=== PATIENT | male | born 1960 | race Caucasian/White ===

== ENCOUNTER 2018-05-13 07:59 | Outpatient (CLI) | payer OTHER, SELFPAY ==
--- NOTE | 2018-05-13 08:27 | DI.RAD_ITS ---
SYMPTOMS/DIAGNOSIS: PAIN LT FOOT, M79.672, ? LT HEEL SPURRING LEFT FOOT: Three views. The bones are normally mineralized. No suspicious lytic or sclerotic lesions, fracture or dislocation is seen. There is a moderate size spur at the plantar surface of the calcaneus. There is an enthesophyte seen at the posterior calcaneus at the insertion site of the Achilles. No radiopaque foreign bodies are seen in the soft tissues. The joint spaces are well maintained. IMPRESSION: Moderate size calcaneal spur.
== END 2018-05-13 08:19 ==
PROVIDERS: PCP Family Medicine; Visit Provider Physician Assistant Medical
DX: M79.672 Pain in left foot (principal); M77.32 Calcaneal spur, left foot
CPT/HCPCS: 73630

== ENCOUNTER 2020-08-25 02:30 | Outpatient (CLI) | payer OTHER, SELFPAY ==
[2020-08-26 13:18] LABS: COVID-19 RT-PCR UVMMC Result Negative (Negative)
== END 2020-08-25 02:31 | disposition home or self-care (01) ==
LOC: LBO 02:30
PROVIDERS: PCP Family Medicine; Visit Provider Surgery
DX: Z20.822 Contact with and (suspected) exposure to COVID-19 (principal); Z01.818 Encounter for other preprocedural examination
CPT/HCPCS: U0003

== ENCOUNTER 2020-08-29 10:22 | Day surgery (SDC) | payer OTHER, SELFPAY ==
--- NOTE | 2020-08-29 07:03 | W.COLOREPORT ---
Date of service: 08/29/20 Time of Service: 12:29 Colonoscopy Report Date of procedure: 08/29/20 Pre-op diagnosis general: Colon Cancer Screening, hx of polyps Post-op diagnosis procedure note: same (polyps) Procedure: Colonoscopy with polypectomy Surgeon: Elizabeth Dangelo Anesthesia proc note operative: other (General/ASA 2/Sandra Silveira CRNA) Estimated blood loss (mL): 3 Pathology: other (Transverse, descending and sigmoid polyp) Complications: None Disposition: same day Indications: The patient is here for Colonoscopy pre-op. His last screening was 5 years ago, in [place]. He has no family history of colon cancer. He has not had any bowel habit changes. -Discussed colonoscopy bowel prep as well as the procedure. Discussed possible complications of the procedure to include bleeding, pain, perforation, missed small lesion/polyp, sore throat, aspiration and adverse reaction to the medications. Questions were answered to patient?s satisfaction. No guarantees were implied or given. I spent 28 minutes in reviewing the record, seeing the patient, providing patient education, answering patient's questions and documenting in the medical record. P// Colonoscopy under sedation Prep: Miralax/Dulcolax Procedure Start Time: 12:29 Procedure End Time: 12:55 Retraction Time: 18 minutes Findings: 3 polyps Procedure Description: After informed consent was obtained the patient was taken to the procedure room and placed in a left decubitous position. Monitors were applied and a time out was done. The patients name, date of , procedure, allergies to medications and metal in their body was reviewed. The patient was then sedated. Once sedated and comfortable a rectal exam was done. External exam was normal. Internal exam revealed a normal sphincter tone and no palpable masses. The prostate felt smooth. The scope was then introduced and retro-flexed. No internal hemorrhoids, polyps or masses were identified on retro-flexion. The scope was then advanced to the cecum without difficulty. The ileocecal vlave and appendiceal orifice were identified. The prep was adequate. The scope was then slowly retracted over 18 minutes back into the rectum. Polyps were removed with cold forceps in the Transverse colon, descending colon and sigmoid colon. There was no diverticulosis noted. The scope was removed and the patient was woken up and taken back to Same day surgery in stable condition. The patient tolerated the procedure well and there were no immediate complications. Follow up: The patient should follow up in 3-5 years unless they develop changes in bowel habits or other new gastrointestinal complaints.
--- NOTE | 2020-08-29 07:04 | W.PM.DSUDISC ---
Discharge Plan Disposition Patient Disposition: HOME Condition: Good Discharge Details Reason For Visit: Colon Cancer Screening Attending Provider: Elizabeth Dangelo Primary Care Provider: Melba Carreon Home Meds and New Rx's Prescriptions: Continued cholecalciferol (vitamin D3) 250 mcg (10,000 unit) capsule 250 mcg PO DAILY RF: 0 aspirin 81 mg tablet,delayed release (DR/EC) 81 mg PO DAILY RF: 0 omega-3 fatty acids [Fish Oil Concentrate] 1,000 mg capsule 3,000 mg PO DAILY RF: 0 diclofenac sodium [Arthritis Pain (diclofenac)] 1 % gel 4 g topical QID PRNRF: 0 losartan-hydrochlorothiazide 100-12.5 mg tablet 1 tab PO DAILY RF: 0 Discontinued polyethylene glycol 3350 17 gram/dose powder 238 g PO ONCE Qty: 238 RF: 0 bisacodyl [Dulcolax (bisacodyl)] 5 mg tablet,delayed release (DR/EC) 5 mg PO ONCE Qty: 4 RF: 0 Discharge Instructions Instructions: Diverticulosis (DC), Colorectal Polyps (DC) Additional Instructions: Findings: 3 polyps Diverticulosis Follow up: 3-5 Please call if you develop: fevers >101.5 Nausea or Vomiting Abdominal pain that is not transient DAY SURGERY UNIT POST ENDOSCOPY INSTRUCTIONS 1. Because there will be medication in your system for the next 24 hours, you may feel a little sleepy. Your coordination will be affected. Therefore: a. Do not drive or operate dangerous equipment for 24 hours. b. Do not drink alcohol beverages for 24 hours (not even beer). c. Plan to go home and rest for the day. 2. Generally there are no restrictions on your activity after a day or so has gone by, but you may feel a bit fatigued for a few days. 3 After you arrive home you may have a light meal and return to a normal diet as you can tolerate it without feeling sick to your stomach. 4. After surgery, you may feel pain or discomfort. This should be only transient, but if it persists please contact your doctor. 5. If there are any questions regarding the findings of your procedure, please feel free to contact your doctor. 6. If you are unable to contact your doctor with a problem, contact the hospital at [phone]. 7. Continue all your regular medications unless directed otherwise. I understand the above instructions and have no questions. Signature of Patient or Responsible Adult Escort Date/Time Name of Responsible Adult Escort Signature of Nurse Date/Time Activity:: Activity as Tolerated Diet:: High Fiber diet Discharge Orders Discharge Orders: Discharge Order (Routine); Ordered 08/29/20 Ordered By: Elizabeth Dangelo
[2020-08-29 10:30] VITALS: BP 125/81; PULSE 61; RESP 16; TEMP 37; O2SAT 94
[2020-08-29] MEDS: Lactated Ringers 1,000 ML 80 ML IV (11:05)
--- NOTE | 2020-08-29 12:35 | BOWEL_PTH ---
PATIENT: Paul Hoffmann LOC: [facility] U#:[id number] AGE/SX: 59/M ROOM: RE08/29/[address]: Elizabeth Dangelo MD : 1960 BED: DIS: 08/29/2020 SPEC #: [id number] RECD: 08/29/20 17:28 STATUS: EDMOND REVenkat #: [id number] JOSE: 08/29/20 12:[address]: Elizabeth Dangelo DEPT: Surgical Specimen RECD BY: Sanjana Padilla ENTERED: 08/29/20 17:34 SP TYPE: Bowel OTHR DR: Melba Carreon Tissues: 1 - BIOPSY BOWEL 2 - BIOPSY BOWEL 3 - BIOPSY BOWEL Procedures: GROSS AND MICRO LEVEL 4 Comments: [id number]
[2020-08-29 13:25] VITALS: BP 135/93; PULSE 68; RESP 16; TEMP 36.7; O2SAT 97
== END 2020-08-29 13:55 | disposition home or self-care (01) ==
LOC: SUR 10:22
PROVIDERS: PCP Family Medicine; Visit Provider Surgery
PROC: 0DJD8ZZ Inspection of Lower Intestinal Tract, Via Natural or Artificial Opening Endoscopic (ICD-10-PCS; CPT 45378; principal; 2020-08-29 11:00)
DX: Z12.11 Encounter for screening for malignant neoplasm of colon (principal); Z86.010 Personal history of colon polyps; D12.3 Benign neoplasm of transverse colon; D12.4 Benign neoplasm of descending colon
CPT/HCPCS: 45380; 88305; J2001

== ENCOUNTER 2020-11-28 10:26 | Outpatient (REF) | payer BC, SELFPAY ==
[2020-11-28 14:20] LABS: Vitamin D 25 Total 42.8 ng/mL (30-100)
== END 2020-11-28 10:27 | disposition home or self-care (01) ==
LOC: NCHCN 10:26
PROVIDERS: PCP Family Medicine; Visit Provider Family Medicine
DX: E55.9 Vitamin D deficiency, unspecified (principal)
CPT/HCPCS: 82306

== ENCOUNTER 2021-02-25 10:07 | Emergency (ER) | payer OTHER, BC, SELFPAY ==
[2021-02-25] VITALS (45 sets, daily range): BP systolic 93–128; BP diastolic 54–86; PULSE 78–160; RESP 13–33; TEMP 36.3; O2SAT 81–100
--- NOTE | 2021-02-25 10:00 | RT.EKG_ITS ---
APPROVED REPORT Exam: Resting ECG Reason for Exam: chest pain Patient Location: E HR:145 bpm ECG Measurements Heart Rate 145 AXIS VT [id number] P [id number] QRSd 79 QRS 27 QT 295 T [id number] QTc 459 Conclusion Atrial fibrillation...V-rate 101-183, irreg A-activity. Afib. No STEMI. I have reviewed and interpreted ECG and agree with software generated interpretation.
--- NOTE | 2021-02-25 10:12 | ED.GENADUL_ITS ---
Discharge Plan Disposition Patient Disposition: HOME Condition: Stable Discharge Details Clinical Impression: Atrial fibrillation, transient, Pericardial effusion, Chest pain, Back pain, Dizziness Primary Care Provider: Melba Carreon ED Provider: Amparo Siu Home Meds and New Rx's Prescriptions: New metoprolol succinate 25 mg tablet extended release 24 hr 25 mg PO DAILY Qty: 30 RF: 0 Continued cholecalciferol (vitamin D3) 250 mcg (10,000 unit) capsule 250 mcg PO DAILY RF: 0 aspirin 81 mg tablet,delayed release (DR/EC) 81 mg PO DAILY RF: 0 omega-3 fatty acids [Fish Oil Concentrate] 1,000 mg capsule 3,000 mg PO DAILY RF: 0 diclofenac sodium [Arthritis Pain (diclofenac)] 1 % gel 4 g topical QID PRNRF: 0 losartan-hydrochlorothiazide 100-12.5 mg tablet 1 tab PO DAILY RF: 0 Discharge Instructions Instructions: A-fib (Atrial Fibrillation) (ED), Chest Pain (ED), Dizziness (ED), Back Pain (ED) Additional Instructions: Your blood work today is reassuring. Your initial EKG showed evidence of atrial fibrillation. Your heart rhythm appears to have converted back to normal sinus rhythm. [facility] cardiology is recommending to start you on a beta-katrin medication called metoprolol for the atrial fibrillation seen on your initial EKG today to prevent any additional episodes of atrial fibrillation. A prescription for this medication has been sent electronically to your pharmacy. [facility] cardiology is not recommending anticoagulation at this time but this can be further discussed with cardiology or your primary care doctor on follow-up. Call Dr. Carreon's office on Saturday to confirm scheduling of your outpatient stress test which should be done as soon as possible. An order for an outpatient echocardiogram was also placed today. You can call the radiology department to schedule this test. Confirm with your primary care doctor and/or insurance company whether this should be obtained here at [facility]. Follow-up with your primary care doctor and cardiology for reevaluation. Return immediately to the emergency department if you develop any worsening or new concerning symptoms such as persistent dizziness, worsening chest pain or back pain, difficulty breathing or any other concern. Referrals: Alethea Omer MD [ [facility] STAFF PHYSICIAN] - Discharge Data Discharge Date/Time-TO BE ENTERED AT DEPARTURE: 02/25/21 14:24 Discharge Physician: Amparo Siu Medical Decision Making 60-year-old male with a history of hypertension and prediabetes presents for 2 episodes of chest pain with intermittent episodes of right-sided back pain and dizziness for the last 2-week, with worsening lightheadedness this morning. EKG on arrival notes a rate of 145 and atrial fibrillation. No available old EKG to compare. Patient denies any known history of atrial fibrillation. He states his last alcoholic beverage was 1 week ago. His blood pressure on arrival 124/64, then decreased to 99/64. Recheck 118/86. We will give a dose of 10 mg Cardizem IV x1 for new onset atrial fibrillation. Unclear how long patient has been in atrial fibrillation. Will obtain screening labs and CT chest to rule out PE. Will give fluids to help maintain BP. Just prior to patient to be given Cardizem, he converted to sinus rhythm. Repeat EKG notes a rate of 81, sinus, no STEMI. Labs reviewed and unremarkable. Troponin negative. CT chest notes a mild to moderate pericardial effusion. Case discussed with [facility] cardiology reviewed EKGs -- his [id number] score is 1 and does not recommend anticoagulation. Recommends metoprolol 25 mg if patient remains hypotensive, or 50 mg once daily. Recommend outpatient stress test as there is a questionable atypical/positional/exertional component. Also recommends echocardiogram sooner than later secondary to pericardial effusion and also consider additional outpatient cancer screening. Repeat troponin negative. Repeat EKG unchanged. Bedside ultrasound done which noted moderate sized pericardial effusion but normal-appearing cardiac wall motion. Patient was given 1 dose of metoprolol here and prescription sent electronically to his pharmacy. Advised to call his PCP on Saturday morning for follow-up and to confirm his outpatient stress test scheduling. An order for a routine echocardiogram was placed in the computer and discussed with radiology. Patient was placed on care management list to help arrange for follow-up appointment with cardiology. Usual and customary return precautions given prior to discharge. Medical Records Medical records reviewed: Yes I reviewed the patient's medical records. Imaging Data Radiologic Study: Radiologist's impression: CTA Chest With Contrast Exam date and time: 02/25/2021 10:57 AM Age: 60 years old Clinical indication: Other: R sided chest and back pain, R/O pe TECHNIQUE: Imaging protocol: Computed tomographic angiography of the chest with contrast. 3D rendering (Not supervised by radiologist): MIP and/or 3D reconstructed images were created by the technologist. Radiation optimization: All CT scans at this facility use at least one of these dose optimization techniques: automated exposure control; mA and/or kV adjustment per patient size (includes targeted exams where dose is matched to clinical indication); or iterative reconstruction. Contrast material: OMNIPAQUE 350; Contrast volume: 100 ml; Contrast route: INTRAVENOUS (IV); COMPARISON: No relevant prior studies available. FINDINGS: Pulmonary arteries: Normal. No pulmonary emboli. Aorta: Unremarkable. No aortic aneurysm. No aortic dissection. Lungs: Unremarkable. No consolidation. No masses. Pleural spaces: Unremarkable. No pneumothorax. No pleural effusion. Heart: Left ventricular and left atrial enlargement small to moderate pericardial effusion Lymph nodes: Unremarkable. No enlarged lymph nodes. Liver: The liver is diffusely low in attenuation, compatible with fatty infiltration. Gallbladder and bile ducts: Cholecystectomy Bones/joints: Moderate diffuse degenerative changes are present. Soft tissues: Unremarkable. IMPRESSION: 1. Small to moderate pericardial effusion 2. No pulmonary emboli 3. No pneumonia Lab Data Lab results reviewed: Yes I reviewed the patient's lab results. Labs: Laboratory Tests Range/Units 02/25/21 02/25/21 02/25/21 10:20 10:20 13:25 WBC (4.4-10.8) 10^3/uL 7.36 RBC (4.36-5.78) 10^6/uL 5.67 Hgb (13.5-17.5) g/dL 15.0 Hct (40.0-50.0) % 46.5 MCV (80-95) fL 82.0 MCH (27.0-33.0) pg 26.5 L MCHC (32.0-36.0) % 32.3 RDW (11.8-14.1) % 13.5 Plt Count (130-400) 10^3/uL 395 MPV (8.0-11.0) fL 9.4 Immature Gran % 0.3 Neutrophils % 65.4 Lymphocytes % 19.3 Monocytes % 10.3 Eosinophils % 3.7 Basophils % 1.0 Nucleated RBC % % 0 Absolute Neutrophils (1.2-6.7) 10^3/uL 4.82 Absolute Lymphocytes (1.2-3.4) 10^3/uL 1.42 Absolute Monocytes (0.1-0.8) 10^3/uL 0.76 Absolute Eosinophils (0.0-0.7) 10^3/uL 0.27 Absolute Basophils (0.0-0.2) 10^3/uL 0.07 Sodium (136-145) mmol/L 139 Potassium (3.5-5.1) mmol/L 4.2 Chloride (98-107) mmol/L 105 Carbon Dioxide (21.0-32.0) mmol/L 27.5 Anion Gap (3-11) mmol/L 6.5 BUN (7-18) mg/dL 24 H Creatinine (0.70-1.30) mg/dL 1.1 Estimated GFR/1.73 m2 (mL/min/1.73m2) >= 60.00 Glucose (74-106) mg/dL 135 H Calcium (8.5-10.1) mg/dL 8.8 Magnesium (1.8-2.4) mg/dL 2.1 Total Bilirubin (0.2-1.0) mg/dL 0.5 AST (15-37) U/L 17 ALT (16-63) U/L 27 Alkaline Phosphatase (46-116) U/L 67 Troponin I (<0.06) ng/mL < 0.05 < 0.05 Total Protein (6.4-8.2) g/dL 7.3 Albumin (3.4-5.0) g/dL 3.6 ECG Data Attestation: I personally reviewed and interpreted this ECG (s) as follows: Interpretation: #1 -- rate of 145. Afib. No STEMI. #2 -- rate of 84. Sinus. T wave inversion in lead III. No STEMI. #3 -- rate of 78. Sinus. T wave inversion in lead III. No STEMI. HPI General Mode of arrival: ambulatory . Date/Time Provider Initiated Documentation: 02/25/21 10:11 . Limitations to Documentation: no limitations . Information obtained by: patient . HPI Narrative: Patient is a 60-year-old male with a history of hypertension who presents to the ED with a complaint of 2 episodes of right-sided chest pain in the last few weeks, with right-sided back pain and intermittent dizziness for the last several days with dizziness worse since this morning. Patient denies any chest pain this morning. He states a few weeks ago he was at work and active when he developed right-sided sharp chest pain that lasted a few hours, was associated with pain worse with deep breath and laying flat and then resolved. 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 He states at that time he developed right-sided back pain which has been intermittent since then and worse over the past few days. He saw his PCP in the last week for these complaints and had what he states was an unremarkable EKG and advised to have an outpatient stress test. Patient states he was advised to come here by his PCP if his symptoms became worse. Patient reports he is mainly here today due to the worsening dizziness this morning. He states when he is up and walking around he has increased lightheadedness. He states the right-sided back pain is minimal at 1/10. He denies any fever, cough, palpitations, abdominal pain, nausea, vomiting, new medications. Related Data Home Medications Medication Instructions Recorded Confirmed diclofenac sodium 1 % topical gel 4 g TOPICAL QID PRN g 06/27/20 02/25/21 losartan 100 1 tab PO DAILY 06/27/20 02/25/21 mg-hydrochlorothiazide 12.5 mg tablet aspirin 81 mg tablet,delayed 81 mg PO DAILY 08/19/20 02/25/21 release cholecalciferol (vitamin D3) 250 250 mcg PO DAILY 08/19/20 02/25/21 mcg (10,000 unit) capsule omega-3 fatty acids 1,000 mg 3,000 mg PO DAILY cap 08/19/20 02/25/21 capsule metoprolol succinate 25 mg PO DAILY #30 tab 02/25/21 Previous Rx's Medication Instructions Recorded metoprolol succinate 25 mg PO DAILY #30 tab 02/25/21 Allergies Allergy/AdvReac Type Severity Reaction Status Date / Time No Known Allergies Allergy Verified 02/25/21 10:23 Review of Systems All systems reviewed & are unremarkable except as noted in HPI and below Constitutional Constitutional: Reports as per HPI, Denies chills and Denies fever(s) Eyes Eyes: Denies blurry vision ENT Ears, Nose, Mouth, and Throat: Denies dizziness, Denies sore throat and Denies throat swelling Cardiovascular Cardiovascular: Reports chest pain and Denies dyspnea Respiratory Respiratory: Denies cough and Denies dyspnea Gastrointestinal Gastrointestinal: Denies abdominal pain, Denies diarrhea and Denies vomiting Genitourinary Genitourinary: Denies hematuria and Denies dysuria Musculoskeletal Musculoskeletal: Reports back pain and Denies numbness Integumentary/Breasts Skin/Breast: Denies lesions and Denies rash Neurologic Neurologic: Denies dizziness, Denies localized weakness and Denies numbness Allergic/Immunologic Allergic/Immunologic: Denies throat swelling [facility] Medical History (Updated 02/27/21 @ 16:33 by Amparo Siu DO) Adenomatous colon polyp Hypertension Osteoarthritis Surgical History History of colonoscopy Social History (Updated 08/22/20 @ 07:40 by PETTY Paul) Smoking/Tobacco Use Status: Never Smoking risk assessment performed?: Yes Alcohol Intake: current Alcohol Intake frequency: a few times a week Alcohol type: beer Substance use type: does not use Do you feel safe at home: Yes Do you feel safe in your relationship?: Yes Exam Const General: cooperative and no acute distress HENMT Head: normal to inspection Face and sinus: normal facial exam Eyes General: appearance normal, both eyes and all related structures EOM: EOM intact bilaterally Neck Neck: normal visual inspection and No submandibular swelling Lymphatic: no lymphadenopathy noted Chest Chest: normal inspection of the chest and no tenderness Resp Effort & Inspection: normal respiratory effort and able to speak in complete sentences Auscultation: clear to auscultation bilaterally Cardio Rate: tachycardic Rhythm: abnormal rhythm irregularly irregular GI Inspection: normal to inspection Palpation: soft, not firm, not rigid and nontender Auscultation: normal bowel sounds Skin General skin exam: no rashes or lesions noted Neuro General: patient alert, patient awake and patient oriented x3 Cognition: normal cognition Speech: speech normal Motor: muscle tone normal throughout Sensory Exam: no sensory deficits noted Extrem General: normal to inspection, full ROM, capillary refill normal, no calf tenderness bilaterally and no edema Psych Appearance: grossly normal Mental Status: mental status grossly normal Speech and Movement: speech and movement normal Affect: normal affect
[2021-02-25 10:29] LABS: Abs Immature Grans 0.02 10^3/uL (0.0-0.06); Absolute Basophil Count 0.07 10^3/uL (0.0-0.2); Absolute Eosinophil Count 0.27 10^3/uL (0.0-0.7); Absolute Lymphocyte Count 1.42 10^3/uL (1.2-3.4); Absolute Monocyte Count 0.76 10^3/uL (0.1-0.8); Absolute Neutrophil Count 4.82 10^3/uL (1.2-6.7); Eosinophils % 3.7; HCT 46.5 % (40.0-50.0); Immature Grans % 0.3; Lymphocytes % 19.3; MCH 26.5 pg (27.0-33.0); MCHC 32.3 % (32.0-36.0); MPV 9.4 fL (8.0-11.0); Monocytes % 10.3; Neutrophils % 65.4; Nucleated RBC 0 %; Platelet Count 395 10^3/uL (130-400); RBC 5.67 10^6/uL (4.36-5.78); RDW 13.5 % (11.8-14.1); RDW-SD 40.4 fL; WBC 7.36 10^3/uL (4.4-10.8)
--- NOTE | 2021-02-25 10:39 | DI.CT_ITS ---
Exam(s) CT CHEST PE CTA EXAM: CT CHEST PE CTA CLINICAL HISTORY: R sided chest and back pain. TECHNIQUE: Imaging Protocol: CT angiography of the chest was performed using pulmonary embolus deuce col. Multi planar reconstructions were performed. CONTRAST MATERIAL: Intravenous: Omnipaque 350 Contrast volume: 100 cc COMPARISON: No exams were available for comparison FINDINGS: CHEST: PULMONARY ARTERIES: There are no intraluminal filling defects to suggest acute pulmonary emboli. LUNGS: Mild atelectatic markings in the right upper lobe.. No larger is of infiltrate. No pleural e ffusions. No pneumothorax. MEDIASTINUM: There is no hilar nor mediastinal adenopathy. Visualized thyroid unremarkable. CARDIAC: Heart size is upper normal. There is a small pericardial effusion.Caliber of the thoracic a stephon is within normal limits. There is no significant shift of the interventricular septum. PARTIALLY VISUALIZED UPPERMOST ABDOMEN: No adrenal masses. Gallbladder surgically absent. OSSEOUS: No significant osseous lesions.. IMPRESSION: 1. There is a small to moderate size pericardial effusion..Heart size is upper normal. 2. No evidence of acute pulmonary emboli nor pulmonary infarction. 3. There are no pleural effusions. RADIATION DOSE DELIVERED: 591.7mGy.cm Total DLP DATA REPOSITORY: All CT scans at this facility are submitted to the National Radiology Data Registry (NRDR) Dose Index Registry (DIR) with the [employer] (A[employer]). RADIATION OPTIMIZATION: All CT scans at this facility use at least one of these dose optimization te chniques: automated exposure control; mA and/or kV adjustment per patient size (includes targeted exa ms where dose is matched to clinical indication); or iterative reconstruction.
[2021-02-25 10:44] LABS: ALT 27 U/L (16-63); AST 17 U/L (15-37); Albumin 3.6 g/dL (3.4-5.0); Alkaline Phosphatase 67 U/L (46-116); Anion Gap 6.5 mmol/L (3-11); BUN 24 mg/dL (7-18); Bilirubin, Total 0.5 mg/dL (0.2-1.0); CO2 27.5 mmol/L (21.0-32.0); CREATININE 1.1 mg/dL (0.70-1.30); Calcium 8.8 mg/dL (8.5-10.1); Chloride 105 mmol/L (98-107); Glucose 135 mg/dL (74-106); Magnesium 2.1 mg/dL (1.8-2.4); Potassium 4.2 mmol/L (3.5-5.1); Sodium 139 mmol/L (136-145); Total Protein 7.3 g/dL (6.4-8.2)
[2021-02-25 10:45] LABS: Troponin I < 0.05 ng/mL (<0.06)
[2021-02-25] MEDS: Omnipaque 350 MG/ML 100 ML BTL IJ (11:02)
[2021-02-25] MEDS: Normal Saline - Diluent 50 ML VIAL IV (11:04)
--- NOTE | 2021-02-25 11:15 | RT.EKG_ITS ---
APPROVED REPORT Exam: Resting ECG Reason for Exam: chest pain Patient Location: E HR:84 bpm ECG Measurements Heart Rate 84 AXIS OK 172 P 58 QRSd 82 QRS 19 QT 347 T -1 QTc 411 Conclusion Sinus rhythm...normal P axis, V-rate 60- 99. T wave inversion in III. I have reviewed and interpreted ECG and agree with software generated interpretation. No STEMIl.
[2021-02-25] MEDS: Normal Saline 1,000 ML 1000 ML IV (11:30)
--- NOTE | 2021-02-25 11:50 | DI.VRAD_ITS ---
PROCEDURE INFORMATION: Exam: CTA Chest With Contrast Exam date and time: 02/25/2021 10:57 AM Age: 60 years old Clinical indication: Other: R sided chest and back pain, R/O pe TECHNIQUE: Imaging protocol: Computed tomographic angiography of the chest with contrast. 3D rendering (Not supervised by radiologist): MIP and/or 3D reconstructed images were created by the technologist. Radiation optimization: All CT scans at this facility use at least one of these dose optimization techniques: automated exposure control; mA and/or kV adjustment per patient size (includes targeted exams where dose is matched to clinical indication); or iterative reconstruction. Contrast material: OMNIPAQUE 350; Contrast volume: 100 ml; Contrast route: INTRAVENOUS (IV); COMPARISON: No relevant prior studies available. FINDINGS: Pulmonary arteries: Normal. No pulmonary emboli. Aorta: Unremarkable. No aortic aneurysm. No aortic dissection. Lungs: Unremarkable. No consolidation. No masses. Pleural spaces: Unremarkable. No pneumothorax. No pleural effusion. Heart: Left ventricular and left atrial enlargement small to moderate pericardial effusion Lymph nodes: Unremarkable. No enlarged lymph nodes. Liver: The liver is diffusely low in attenuation, compatible with fatty infiltration. Gallbladder and bile ducts: Cholecystectomy Bones/joints: Moderate diffuse degenerative changes are present. Soft tissues: Unremarkable. IMPRESSION: 1. Small to moderate pericardial effusion 2. No pulmonary emboli 3. No pneumonia Dictated and Authenticated by: Alethea Taylor MD. Ordering:ALEJANDRA Christensen MD
--- NOTE | 2021-02-25 13:15 | RT.EKG_ITS ---
APPROVED REPORT Exam: Resting ECG Reason for Exam: chest/back pain Patient Location: E HR:78 bpm ECG Measurements Heart Rate 78 AXIS OH 160 P 59 QRSd 85 QRS 25 QT 363 T 23 QTc 414 Conclusion Sinus rhythm...normal P axis, V-rate 60- 99. Sinus. I have reviewed and interpreted ECG and agree with software generated interpretation. No STEMI.
[2021-02-25] MEDS: Metoprolol CR 25 MG TABCR PO (13:26)
[2021-02-25 13:52] LABS: Troponin I < 0.05 ng/mL (<0.06)
--- NOTE | 2021-02-25 18:05 | NUR.NOTE ---
referral faxed to cardilology
== END 2021-02-25 14:24 | disposition home or self-care (01) ==
PROVIDERS: Emergency Provider Physician Assistant; PCP Family Medicine
DX: R07.9 Chest pain, unspecified (principal); I48.91 Unspecified atrial fibrillation; M54.89 Other dorsalgia; R42 Dizziness and giddiness; I31.3 Pericardial effusion (noninflammatory)
CPT/HCPCS: 36415; 71275; 80053; 93005; 96360; 99285; 83735; 84484; 85025; 93010; J3490

== ENCOUNTER 2021-02-28 02:18 | Outpatient (CLI) | payer BC, SELFPAY ==
--- NOTE | 2021-02-28 13:26 | DI.US_ITS ---
APPROVED REPORT EXAM: Comprehensive 2D, Doppler, and color-flow Echocardiogram Patient Location: Out-Patient Powerhouse Oiler: Charlotte Cheung RDCS (AE) Indications: Dizziness, A Fib, Pericardial Effusion Other Information Study Quality: Adequate Conclusion Left Ventricle : The left ventricle is normal size. The left ventricular systolic function is normal. The left ventricular ejection fraction is within the normal range. There is normal left ventricular wall thickness. There is normal LV segmental wall motion. LVEF is 59%. Right Ventricle : The right ventricle is normal size. The right ventricular systolic function is norm al. The RVSP is 25.3mmHg. Atria : The left atrium size is normal. The right atrium size is normal. Great Vessels : The aortic root is normal in size. The ascending aorta is mildly dilated (3.7cm). Aor tic arch is normal in caliber. IVC is normal in size and collapses >50% with inspiration. Pericardium : Trace pericardial effusion. See remainder of study for further details. Wall motion Left Ventricle The left ventricle is normal size. The left ventricular systolic function is normal. The left ventric ular ejection fraction is within the normal range. There is normal left ventricular wall thickness. T here is normal LV segmental wall motion. The left ventricular diastolic function is normal. There is no ventricular septal defect visualized. LVEF is 59%. Right Ventricle The right ventricle is normal size. The right ventricular systolic function is normal. The RVSP is 25 .3mmHg. Atria The left atrium size is normal. The right atrium size is normal. The interatrial septum is intact wit h no evidence for an atrial septal defect. Aortic Valve The aortic valve is normal in structure. There is no aortic valvular stenosis. No aortic regurgitatio n is present. Mitral Valve The mitral valve is normal in structure. No evidence of mitral valve stenosis. Trace mitral regurgita tion. Tricuspid Valve The tricuspid valve is normal in structure. There is no tricuspid valve stenosis. Trace to mild tricu spid regurgitation. Pulmonic Valve The pulmonary valve is normal in structure. There is no pulmonic valvular stenosis. Trace pulmonic re gurgitation. Great Vessels The aortic root is normal in size. The ascending aorta is mildly dilated (3.7cm). Aortic arch is norm al in caliber. IVC is normal in size and collapses >50% with inspiration. Pericardium Trace pericardial effusion. 2D Dimensions IVSD d PLAX 0.92 cm M: 0.6-1.2 LV Vol A2C d MOD 137.1 mL LVPW d PLAX 0.99 cm M: 0.6 - 1.2 LV Vol A4C d MOD 126.1 mL LVID d PLAX 5.41 cm M: 4.2 - 5.8 LA vol/ BSA A2C s A-L 23.2 mL/m2 LVDs 3.75 cm M: 2.5 - 4.0 LA vol/ BSA A4C s A-L 28.4 mL/m2 Ao Root d 3.17 cm M: 3.1 - 3.7 LA Vol/ BSA Biplane s A-L 26.3 mL/m2 RA Area A4C 14.61 cm2 LA Area A4C s MOD 20.95 cm2 RA Vol/ BSA A4C s A-L 15.5 mL/m2 LA Area A2C s MOD 18.47 cm2 Ao Asc Diam d 3.69 cm M: 2.6 - 3.4 LV EF A4C MOD 60.6 % LV EF Teichholz 57.1 % LV EF A2C MOD 58.8 % LVEF (López's) 58.51 % M: 52 - 72 LV EF Biplane MOD 58.5 % LV Volume 96.36 mL M: 62 - 150 SV 77.69 mL LV Volume Index 43.60 mL/m2 M: 34 - 74 SV Index 35.07 mL/m2 LV Vol Biplane MOD 132.8 mL FS 30.25 % M-Mode TAPSE 2.43 cm (M/F) >1.7 LV Diastology MV E' medial 0.060 (>0.07 m/s) E/A Ratio 1.0 LV E/e MED 11.10 (<14) MV E Vmax 0.67 (0.4-1.3 m/s) MV E' lateral 0.110 (>0.1 m/s) MV A Vmax 0.65 (0.4-1.3 m/s) LV E/e LAT 6.05 (<14) MV E/A Ratio 0.98 MV E/E' medial 11.12 MV E/E' lateral 6.06 Aortic Valve LVOT Area 2.90 cm2 AoV Area Vmax 2.52 cm2 LVOT Vmax 1.29 m/s AoV Area/ BSA (Vmax) 1.14 cm2/m2 LVOT Mean [place]. 0.93 m/s BRYAN Mean [place]. 2.60 cm2 LVOT Peak Grad 6.7 mmHg BRYAN Mean [place]. Index 1.17 cm2/m2 LVOT Mean Grad 3.8 mmHg LVOT VTI 0.270 m LVOT Diam s 1.90 cm AoV Vmax 1.49 m/s Velocity Ratio 0.86 AoV Mean [place]. 1.04 m/s AoV Peak Grad 8.8 mmHg LVOT SV 78.24 mL AoV Mean Grad 4.8 mmHg AoV VTI 0.279 m AoV Area VTI 2.80 cm2 AoV Area/ BSA (VTI) 1.26 cm/m2 Mitral Valve MV DT 267 (160-240 msec) MV PHT 77 msec MV Area PHT 2.85 cm2 MV VTI 0.272 m MV Area VTI 2.88 (4.0-6.0 cm2) Pulmonary Valve PV Vmax 1.03 (0.5-1.5 m/s) RVOT Peak Gr. 2.76 mmHg PV Peak Grad 4.2 mmHg RVOT Mean Gr. 1.35 mmHg PV Mean Grad 2.3 mmHg RVOT VTI 0.188 m PV VTI 0.232 m RVOT Vmax 0.83 m/s Tricuspid Valve TR Peak Grad 22.3 mmHg TR Vmax 2.36 m/s RA Pressure 3.00 mmHg RVSP (TR) 25.3 mmHg
== END 2021-02-28 02:38 ==
PROVIDERS: PCP Family Medicine; Visit Provider Family Medicine
DX: R42 Dizziness and giddiness (principal); I48.91 Unspecified atrial fibrillation; I31.3 Pericardial effusion (noninflammatory); I77.810 Thoracic aortic ectasia
CPT/HCPCS: 93306

== ENCOUNTER 2021-03-06 00:12 | Outpatient (CLI) | payer BC, SELFPAY ==
--- NOTE | 2021-03-06 09:15 | DI.NM_ITS ---
APPROVED REPORT Exam: Pharmacologic paired w/ low level exercise Patient Location: Out-Patient Room/Bed: Stress Nurse: Shireen Edwards RN Ordering Provider:LIZMalik KIMBALL, Contact Number: [phone] BMI: 32.99 Baseline Rhythm: Sinus Rhythm Comment: inverted T waves in leads III and aVF Indications: Exertional chest pain Medical History Medical History: Atrial fibrillation, Pericardial effusion, HTN Cardiac Medications: Aspirin, Losartan-Hydrochlorothiazide Allergies: No known drug allergies Cardiac Risk Factors: HTN Previous Cardiac Procedures: None Pretest Chest Pain Characteristics: No chest pain Exercise History: Physically active Physical Disabilities: None Lung Sounds: Clear to auscultation Heart Sounds: Regular Stress Test Details Test: Pharmacologic stress was paired with low level exercise. Reason for pharmacologic stress test: inverted T waves. Nuclear Acquisition: Rest Tc-99m/Stress Tc-99m 1 day Rest Isotope: Tc-99m Sestamibi. Dose: 11.7 Date: 03/06/2021 Injection Time: 0930 Stress Isotope: Tc-99m Sestamibi. Dose: 37.0 Date: 03/06/2021 Injection Time: 1100 HR Resting HR Supine: 63 bpm Max Heart Rate (APMHR): 159.529301 bpm Resting HR Standin bpm Target HR (85% APMHR): 135.776484 bpm Max HR Achieved: 110 bpm % of APMHR: 69.18 Recovery HR: 77 bpm BP Resting BP Supine: 116/78 mmHg Resting BP Standin/78 mmHg Max BP: 144/72 mmHg Recovery BP: 122/70 mmHg ECG Resting ECG: Sinus Rhythm w/ inverted T waves in leads III and aVF Ectopy: None Stress ECG: Sinus Tachycardia w/ inverted T waves in leads III and aVF ST Change: No significant ST segment changes noted Arrhythmia: None Recovery ECG: Sinus Rhythm w/ inverted T waves in leads III and aVF Recovery ST Change: No significant ST segment changes noted Recovery Arrhythmia: None Clinical Stress Symptoms: Dyspnea (mild) Rate Pressure Product: [id number] Stress ECG Conclusion 1. The resting electrocardiogram showed left ventricular hypertrophy with repolarization abnormalitie s 2. Patient underwent pharmacologic stress with regadenoson 3. Peak heart rate was 69% of maximal predicted for age 4. Electrocardiographically the test was nondiagnostic due to inadequate heart rate Stress Test Summary STAGE HR BP Symptoms NOTES Supine 63 116/78 1 min post Lexiscan injection 106 140*64 mild SOB 3 min post Lexiscan injection 90 144/72 6 min post Lexiscan injection 77 122/70 SOB resolved Standing 71 124/78 Lexiscan injection was paired w/ low level exercise at 1.7 MPH and 0% grade. 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 Radiologist Interpretation by: Joe Warner MD Interpretation Date/Time: 03/07/2021 15:50:30
[2021-03-06] MEDS: Regadenoson 0.4 MG/5 ML SYR IVP (10:54)
== END 2021-03-06 00:32 ==
PROVIDERS: PCP Family Medicine; Visit Provider Family Medicine
DX: R07.89 Other chest pain (principal); I10 Essential (primary) hypertension; R94.31 Abnormal electrocardiogram [ECG] [EKG]
CPT/HCPCS: 78452; 93016; 93018; 93017; J2785

== ENCOUNTER 2022-04-19 21:11 | Emergency (ER) | payer BC, SELFPAY ==
[2022-04-19 21:17] VITALS: BP 139/79; PULSE 77; RESP 16; TEMP 36.5; O2SAT 97
--- NOTE | 2022-04-19 21:42 | ED.GENADUL_ITS ---
Discharge Plan Disposition Patient Disposition: HOME Condition: Good Discharge Details Chief Complaint: GenMedical Clinical Impression: Bleeding from varicose veins of left lower extremity Primary Care Provider: Melba Carreon ED Provider: Vladislav Harden Home Meds and New Rx's Prescriptions: No Action cholecalciferol (vitamin D3) 250 mcg (10,000 unit) capsule 250 mcg PO DAILY aspirin 81 mg tablet,delayed release (DR/EC) 81 mg PO DAILY omega-3 fatty acids [Fish Oil Concentrate] 1,000 mg capsule 3,000 mg PO DAILY diclofenac sodium [Arthritis Pain (diclofenac)] 1 % gel 4 g topical QID PRN (Reason: PAIN) Rx Instructions: apply to single elbow, wrist or hand; for hand includes palm/fingers/back of hand losartan-hydrochlorothiazide 100-12.5 mg tablet 1 tab PO DAILY Discharge Instructions Additional Instructions: Unfortunately you have some superficial varicose veins, and sometimes these can be scraped and then bleed profusely. Wearing compression socks up to the knee every day and trying to keep her feet elevated as often as possible can help limit this. Please continue to manage her blood pressure well at home. A clsebg-ls-ceumn suture was placed to help stop the bleeding, please follow-up with your family doctor during the 10 days to reevaluate to see if they need to be removed. If you notice any worsening of your symptoms, or any new symptoms such as vomiting, diarrhea, fever, chills, shortness of breath, chest pain, numbness, weakness, or fainting , please return immediately to the emergency department for reevaluation. Please follow up with your primary care provider as soon as possible for reassessment and reevaluation. As always, it was a pleasure participating in your medical care today. Referrals: Melba Carreon [Primary Care Provider] - Medical Decision Making 61-year-old male on a daily aspirin presents for bleeding from his left posterior calf. Patient states that he does have history of varicose veins, but has not had any problems with them before. He denies any trauma. Bleeding has been going on for the last hour or so. No other complaints at this time. No other modifying factors. Exam demonstrates an oozing left calf varicosity. Pressure was applied and no bleeding stopped. Lidocaine with epinephrine was injected which diminished bleeding, [id number] suture was placed and patient tolerated this well. Was performed with 4-0 Vicryl. Patient will be discharged home. Discussed red flags which to return, including the use of compression stockings. I have extensively reviewed the treatment plan and discharge instructions with the patient and their family. I have addressed all patient concerns at this time. The patient and family was made aware of what symptoms to monitor for that would warrant a return to the emergency department. Discussed the plan with the patient and family, they demonstrate verbal understanding and agreement with our assessment and plan at this time. The documentation in this chart was dictated using Crossfader dictation software. Please excuse any dictation errors. HPI General Date/Time Provider Initiated Documentation: 04/19/22 21:17 . HPI Narrative: 61-year-old male on a daily aspirin presents for bleeding from his left posterior calf. Patient states that he does have history of varicose veins, but has not had any problems with them before. He denies any trauma. B leeding has been going on for the last hour or so. No other complaints at this time. No other modifying factors. Related Data Home Medications Medication Instructions Recorded Confirmed diclofenac sodium 1 % topical gel 4 g topical QID PRN PAIN 06/27/20 04/19/22 (Arthritis Pain (diclofenac)) losartan 100 1 tab PO DAILY 06/27/20 04/19/22 mg-hydrochlorothiazide 12.5 mg tablet aspirin 81 mg tablet,delayed 81 mg PO DAILY 08/19/20 04/19/22 release cholecalciferol (vitamin D3) 250 250 mcg PO DAILY 08/19/20 04/19/22 mcg (10,000 unit) capsule omega-3 fatty acids 1,000 mg 3,000 mg PO DAILY 08/19/20 04/19/22 capsule (Fish Oil Concentrate) Allergies Allergy/AdvReac Type Severity Reaction Status Date / Time No Known Allergies Allergy Verified 04/19/22 21:14 General Stated Complaint: GenMedical JAMEEL: 4 Review of Systems All systems reviewed & are unremarkable except as noted in HPI and below PFSH All Active Problems Atrial fibrillation, transient (Acute) Chest pain (Acute) Back pain (Acute) Dizziness (Acute) Pericardial effusion (Acute) Bleeding from varicose veins of left lower extremity (Acute) Tubular adenoma of colon (Acute) Screening for colon cancer (Acute) Medical History Adenomatous colon polyp Hypertension Osteoarthritis Surgical History History of colonoscopy Social History Smoking/Tobacco Use Status: Never Smoking risk assessment performed?: Yes Alcohol Intake: current Alcohol Intake frequency: a few times a week Alcohol type: beer Drug use: Never Substance use type: does not use Do you feel safe at home: Yes Do you feel safe in your relationship?: Yes Exam Narrative Exam Narrative: 1.Const: Well-nourished, Well-developed, appearing stated age 2.Eyes: PERRL, no conjunctival injection, and symmetrical lids. 3.ENT: Atraumatic external nose and ears. Moist MM. Neck: Symmetric, trachea midline, No thyromegaly. 4.CVS: +S1/S2, No murmurs or gallops. Peripheral pulses 2+ and equal in all extremities. Brisk capillary refill in all extremities. 5.RESP: Unlabored respiratory effort. Clear to auscultation bilaterally. No wheezes rales or rhonchi 6.GI: Soft, Nontender/Nondistended, No hepatosplenomegaly. No guarding or rebound. 7.MSK: Normocephalic/Atraumatic, Extremities w/o deformity or ttp No cyanosis or clubbing, Normal movement of all extremities 8.Skin: Warm, Dry. Patient demonstrates a small varicosity in his left calf that is actively bleeding. No evidence of trauma. 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 Sensation grossly intact, no focal neurologic deficits. 10.Psych: (AAO) x3. Appropriate mood and affect Course Vital Signs Vital signs: Vital Signs Temperature 36.5 C 04/19/22 21:17 Pulse 77 04/19/22 21:17 Respiratory Rate 16 04/19/22 21:17 Blood Pressure 139/79 04/19/22 21:17 Pulse Oximetry 97 04/19/22 21:17 Temperature 36.5 C 04/19/22 21:17 Temperature Source Oral 04/19/22 21:17 Pulse 77 04/19/22 21:17 Respiratory Rate 16 04/19/22 21:17 Respiratory Effort Non-Labored 04/19/22 21:38 Respiratory Depth Normal 04/19/22 21:38 Respiratory Pattern Normal 04/19/22 21:38 Blood Pressure 139/79 04/19/22 21:17 Blood Pressure Position Sitting 04/19/22 21:17 Pulse Oximetry 97 04/19/22 21:17 Oxygen Delivery Method Room Air 04/19/22 21:17 Oxygen Flow Rate 0 04/19/22 21:17 Pain Level 0 04/19/22 21:17 Procedures Laceration Laceration 1: Site: lower extremity Side (If applicable): left Size (cm): 0.5 Description: linear Depth: simple, single layer Local Anesthetic: Lidocaine 1% and with Epi Amount of anesthesia used (mL): 4 Skin layer closed with: other (Vicryl) Size (cm): 4-0 Number of sutures: 1 Technique: other ([id number] stitch)
[2022-04-19] MEDS: Cellulose,Oxidized 2X3 PKT 1 EACH MC (21:50)
[2022-04-19 21:51] VITALS: BP 129/75; PULSE 79; RESP 16; TEMP 36.6; O2SAT 96
== END 2022-04-19 21:56 | disposition home or self-care (01) ==
PROVIDERS: Emergency Provider Student in an Organized Health Care Education/Training Program; PCP Family Medicine
DX: I83.892 Varicose veins of left lower extremity with other complications (principal); I10 Essential (primary) hypertension; Z79.82 Long term (current) use of aspirin
CPT/HCPCS: 12001; 99283; 99284